=== PATIENT | female | born 1940 | race Caucasian/White ===

== ENCOUNTER 2018-05-04 12:58 | Emergency (ER) | payer OTHER ==
[2018-05-04 13:05] VITALS: BMI 24.7
--- NOTE | 2018-05-04 13:58 | PDOC ---
History of Present Illness - General Chief Complaint: Diarrhea Stated Complaint: DIARRHEA Time Seen by Provider: 05/04/18 13:39 History Source: Patient, Family (Daughter present for interview.) Exam Limitations: No Limitations - History of Present Illness Travel History: No Initial Comments: 77 y/o female presenting to [facility] ER via private auto complaining of three days of diarrhea and subjective fever this morning around 11:00. Pt reports diarrhea is an acute on chronic problem with several weeks of episodes in the recent past with associated abdominal pain. Stool is non-bloody. Denies recent antibiotic usage. Has been evaluated by PCP for symptoms; reports stool samples were negative. No abdominal pain at this time. Past History - Past Medical History Allergies/Adverse Reactions: Allergies Allergy/AdvReac Type Severity Reaction Status Date / Time No Known Allergies Allergy Verified 05/04/18 13:05 Home Medications: Ambulatory Orders Cephalexin Monohydrate [Keflex -] 500 mg PO BID 7 Days #14 capsule 05/04/18 COPD: No Diabetes: Yes (IDDM) HTN: Yes - Suicide/Smoking/Psychosocial Hx Smoking History: Never smoked Review of Systems - Review of Systems Constitutional: Yes: Fever. No: Chills, Diaphoresis HEENTM: No: Throat Pain, Difficulty Swallowing Respiratory: No: Shortness of Breath Cardiac (ROS): No: Chest Pain ABD/GI: Yes: Diarrhea, Abdominal cramping (Not present now.). No: Constipated, Nausea, Rectal Bleeding, Vomiting, Tarry Stools : No: Burning, Dysuria, Discharge, Frequency, Flank Pain, Hematuria Musculoskeletal: No: Muscle Pain Integumentary: No: Rash Hematologic/Lymphatic: No: Easy Bleeding, Easy Bruising *Physical Exam - Vital Signs Last Vital Signs Temp Pulse Resp BP Pulse Ox 98.5 F 107 H 20 125/63 99 05/04/18 13:01 05/04/18 13:01 05/04/18 13:01 05/04/18 13:01 05/04/18 13:01 - Physical Exam Comments: Constitutional: Well-developed, well-nourished female in no obvious distress. Found semi-fowlers in hospital bed. Alert and oriented x4. Answered all questions appropriately and completely. Speech was non-labored, non-pressured. Head: Normocephalic. No obvious external signs of trauma. HEENT: Normocephalic. No obvious external signs of trauma. Hearing grossly normal. No nasal discharge. Neck is supple, trachea is midline. Cardiovascular: Regular rate and regular rhythm. No murmur, rubs, clicks, or gallops. Peripheral pulses: Radial pulses full. Respiratory: Breathing unlabored. Equal chest rise and fall. Clear to auscultation bilaterally. No stridor, no wheezing, no rhonchi. Gastrointestinal: abdomen is soft, non-tender, non-distended. No hepatosplenemegaly. No pulsatile masses. No overlying skin lesions or obvious signs of trauma. Neuro: Alert and oriented. Moving all four extremities spontaneously. Skin: Warm, dry, and intact. No bruising, rashes, or other lesions. : No R or L CVA tenderness. Psych: Affect: appropriate. Mood: normal. ED Treatment Course - LABORATORY CBC & Chemistry Diagram: 05/04/18 14:42 05/04/18 14:42 - RADIOLOGY Radiograph Interpretation: CT of Abdomen and Pelvis with contrast: Dennis Blood MD wrote on May 04, 2018 at 06:00 PM: Referring Physician: BISHOP NUNO Patient Name: SHAHLA MICHELLE THIS IS A PRELIMINARY REPORT FROM [facility] DATE OF SERVICE: 2018-05-04 16:59:21 IMAGES: 501 EXAM: CT abdomen and pelvis with IV contrast. Clinical indication: Abdominal pain with diarrhea. There are no prior studies available for comparison. Technique: Axial IV contrast-enhanced CT images of the abdomen and pelvis were obtained followed by coronal and sagittal reformats. Findings: The visualized portions of the lower thorax are within normal limits. Her graph there is no free intra-abdominal gas or fluid. There is a small simple hepatic cyst within segment 2 of the liver and another tiny hepatic hypodensity within segment 4 of the liver which likely represents a tiny hepatic cyst. No definite worrisome hepatic lesions. The gallbladder, adrenals, pancreas, and spleen are normal. There are some left- sided renal hypodensities which are not completely characterized, particularly within the midportion of the left kidney where there is a 1.6 and meter nodule. Recommend targeted sonogram for further characterization. The bilateral kidneys do not demonstrate any evidence of hydronephrosis or renal calculi and are otherwise unremarkable. There is fairly extensive aortoiliac atherosclerotic vascular calcifications. There are no enlarged abdominal or pelvic lymph nodes, by size criteria. The urinary bladder is unremarkable. The pelvic organs are grossly unremarkable, given limitations of CT for evaluating them. The appendix is normal. The remainder of the bowel is unremarkable. There is an anterolisthesis of L4 on L5 of approximately 0.5 cm secondary to degenerative changes. Remainder of the visualized bony structures are unremarkable. Impression: 1. Left-sided renal hypodensities which are not completely characterized. These could represent renal cysts, but neoplasms cannot be entirely excluded. Recommend targeted renal sonogram. 2. Anterolisthesis of L4 on L5 secondary to degenerative changes. Individualized dose optimization techniques were used for this CT. THIS DOCUMENT HAS BEEN ELECTRONICALLY SIGNED Dennis Blood MD 05/04/2018 16:58 EST M.D. Please call [facility] [phone] ([phone]) with questions. Dennis Blood MD Medical Decision Making - Medical Decision Making *Reviewed nursing notes and prior visit documentation. 77 y/o female complaining of subjective fever and diarrhea in setting of recent prolonged period of frequent diarrhea. Underwent unremarkable outpatient workup. Afebrile on arrival. Vitals unremarkable for hypotension or tachycardia. Benign physical exam without abdominal or flank tenderness; no peritoneal signs. Low suspicion for colitis, enteritis, diverticulosis/ diverticulitis, cholecystitis, hepatitis, pancreatitis given HPI and physical exam. Will obtain EKG, troponin, CBC, CMP, CT of abdomen and pelvis and UA with culture given possible fever. NS IVB administered. CT of abdomen and pelvis unremarkable for acute process. UA positive for pyuria and nitrites. Will treat as presumptive UTI. Possible source of fever. Discussed imaging and laboratory results with pt. Answered all questions. Provided return precautions. Pt expressed verbal understanding and agreement with plan to discharge home with outpatient follow up. Prescribed Keflex for abx therapy. *DC/Admit/Observation/Transfer Diagnosis at time of Disposition: UTI (urinary tract infection) - Discharge Dispostion Disposition: HOME - Prescriptions Prescriptions: Cephalexin Monohydrate [Keflex -] 500 mg PO BID 7 Days #14 capsule - Referrals Referrals: Anitha Valenzuela MD [Primary Care Provider] - - Patient Instructions Printed Discharge Instructions: DI for Urinary Tract Infection (UTI) Additional Instructions: You have been diagnosed with a UTI today. I have sent one prescription to the [facility] on [address] in [place], [place]. Please take as directed. Follow up with your primary care doctor within the next week. I have attached a copy of your CT scan. Please take this report with you to the visit so that you may discuss the results. Go to the nearest ER if your symptoms worsen or you feel like you condition requires another emergency evaluation. Print Language: PERSIAN - Post Discharge Activity
[2018-05-04 15:02] LABS: URINE APPEARANCE SLCLOUDY; URINE BILIRUBIN NEGATIVE (<2.0 mg/dL); URINE COLOR YELLOW; URINE GLUCOSE (UA) NEGATIVE (NEGATIVE); URINE KETONE NEGATIVE (NEGATIVE); URINE NITRITE POSITIVE (NEGATIVE); URINE PROTEIN NEGATIVE (NEGATIVE); URINE UROBILINOGEN NEGATIVE mg/dL (0.2-1.0)
[2018-05-04 15:03] LABS: BASO % 0.4 % (0-2.0); HEMATOCRIT 38.7 % (32.4-45.2); HEMOGLOBIN 13.4 GM/dL (10.7-15.3); LYMPH % 6.1 % (8-40); MCH 30.8 pg (25.7-33.7); MCHC 34.6 g/dl (32.0-36.0); MEAN PLT VOLUME 7.5 fl (7.5-11.1); MONO % 2.8 % (3.8-10.2); NEUT % 90.7 % (42.8-82.8); PLATELET COUNT 287 K/MM3 (134-434); RBC 4.35 M/mm3 (3.60-5.2); RDW 13.3 % (11.6-15.6); WHITE BLOOD COUNT 14.2 K/mm3 (4.0-10.0)
[2018-05-04] MEDS ORDERED: SODIUM CHLORIDE 1,000 ML IV STA (15:06)
[2018-05-04 15:09] LABS: URINE LEUK ESTERASE 1+ (NEGATIVE)
[2018-05-04 15:11] LABS: EPI CELLS RARE /HPF (FEW); URINE BACTERIA FEW /hpf (NONE SEEN)
--- NOTE | 2018-05-04 15:28 | PDOC ---
Attending Attestation - Resident Resident Name: Nima Dickinson - ED Attending Attestation I have performed the following: I have examined & evaluated the patient, The case was reviewed & discussed with the resident, I agree w/resident's findings & plan, Exceptions are as noted - HPI HPI: 05/04/18 15:23 77-year-old female history of hypertension, diabetes presents with diarrhea for 3 weeks. The patient's been reporting soft loose stools and no abdominal pain. Denies any nausea or vomiting or fevers or not time. Says she saw her primary care physician obtain stool samples but was reportedly negative. However today, patient started developing tactile fevers and came to the ER. Denies abdominal pain now. Denies sick contacts, recent travels or recent antibiotics. - Physicial Exam PE: 05/04/18 15:27 GENERAL: Awake, alert, and fully oriented, in no acute distress HEAD: No signs of trauma EYES: EOMI, sclera anicteric, conjunctiva clear ENT: Auricles normal inspection, hearing grossly normal, nares patent NECK: Normal ROM, supple, ABDOMEN: Soft, nontender,No guarding, no rebound. No masses EXTREMITIES: Normal range of motion, no edema. No clubbing or cyanosis. No cords, erythema, or tenderness NEUROLOGICAL: Cranial nerves II through XII grossly intact. Normal speech, normal gait SKIN: Warm, Dry, normal turgor, no rashes or lesions noted. - Medical Decision Making 05/04/18 15:28 Vital Signs Temp Pulse Resp BP Pulse Ox 98.5 F 107 H 20 125/63 99 05/04/18 13:01 05/04/18 13:01 05/04/18 13:01 05/04/18 13:01 05/04/18 13:01 Given fever and diarrhea, we'll need to rule out colitis. Obtain blood work and CAT scan and pelvis. Patient also noted with positive nitrates and urine. We'll treat this as urinary tract infection as well. 05/04/18 17:21 CBC, BMP 05/04/18 14:42 05/04/18 14:42 CMP Sodium 135 mmol/L (136-145) L 05/04/18 14:42 Potassium 3.8 mmol/L (3.5-5.1) 05/04/18 14:42 Chloride 99 mmol/L (98-107) 05/04/18 14:42 Carbon Dioxide 26 mmol/L (21-32) 05/04/18 14:42 Anion Gap 10 MMOL/L (8-16) 05/04/18 14:42 BUN 14 mg/dL (7-18) 05/04/18 14:42 Creatinine 0.8 mg/dL (0.55-1.02) 05/04/18 14:42 Creat Clearance w eGFR > 60 (>60) 05/04/18 14:42 Random Glucose 101 mg/dL (74-106) 05/04/18 14:42 Calcium 8.4 mg/dL (8.5-10.1) L 05/04/18 14:42 Total Bilirubin 0.5 mg/dL (0.2-1.0) 05/04/18 14:42 AST 20 U/L (15-37) 05/04/18 14:42 ALT 25 U/L (12-78) 05/04/18 14:42 Alkaline Phosphatase 65 U/L (45-117) 05/04/18 14:42 Troponin I < 0.02 ng/ml (0.00-0.05) 05/04/18 14:42 Total Protein 7.1 g/dl (6.4-8.2) 05/04/18 14:42 Albumin 3.7 g/dl (3.4-5.0) 05/04/18 14:42 Urine Test Results Urine Color Yellow 05/04/18 14:45 Urine Appearance Slcloudy 05/04/18 14:45 Urine pH 6.0 (5.0-8.0) 05/04/18 14:45 Ur Specific Saline 1.009 (1.001-1.035) 05/04/18 14:45 Urine Protein Negative (NEGATIVE) 05/04/18 14:45 Urine Glucose (UA) Negative (NEGATIVE) 05/04/18 14:45 Urine Ketones Negative (NEGATIVE) 05/04/18 14:45 Urine Blood Negative (NEGATIVE) 05/04/18 14:45 Urine Nitrite Positive (NEGATIVE) 05/04/18 14:45 Urine Bilirubin Negative (<2.0 mg/dL) 05/04/18 14:45 Ur Leukocyte Esterase 1+ (NEGATIVE) H 05/04/18 14:45 Ur Epithelial Cells Rare /HPF (FEW) 05/04/18 14:45 Urine Bacteria Few /hpf (NONE SEEN) 05/04/18 14:45 WBC 14 with positive nitrates and leuk. Will treat as UTI. CT abdomen and pelvis pending. 05/04/18 18:02 CT scan of abdomen and pelvis shows no acute findings. Does show some left kidney hypodensities, cannot exclude malignancies. Will inform patient and have her follow up as an outpatient.
[2018-05-04 15:37] LABS: ALBUMIN 3.7 g/dl (3.4-5.0); ANION GAP 10 MMOL/L (8-16); BILIRUBIN,TOTAL 0.5 mg/dL (0.2-1.0); BLOOD UREA NITROGEN 14 mg/dL (7-18); CALCIUM 8.4 mg/dL (8.5-10.1); CHLORIDE 99 mmol/L (98-107); CO2 26 mmol/L (21-32); CREATININE 0.8 mg/dL (0.55-1.02); GLUCOSE,RANDOM 101 mg/dL (74-106); POTASSIUM 3.8 mmol/L (3.5-5.1); SGOT/AST 20 U/L (15-37); SGPT/ALT 25 U/L (12-78); SODIUM 135 mmol/L (136-145); TOT PROT 7.1 g/dl (6.4-8.2)
[2018-05-04 15:39] LABS: ALK PHOS 65 U/L (45-117)
[2018-05-04 17:41] VITALS: BP 120/68; PULSE 86; TEMP 97.9
--- NOTE | 2018-05-05 13:23 | EKG ---
Test Reason : Blood Pressure : / mmHG Vent. Rate : 093 BPM Atrial Rate : 093 BPM P-R Int : 186 ms QRS Dur : 084 ms QT Int : 382 ms P-R-T Axes : 036 010 048 degrees QTc Int : 474 ms NORMAL SINUS RHYTHM WITH SINUS ARRHYTHMIA NORMAL ECG NO PREVIOUS ECGS AVAILABLE Confirmed by BRUCE ARMENTA MD ([id number]) on 05/05/2018 1:23:26 PM Referred By: Confirmed By:BRUCE ARMENTA MD
== END 2018-05-04 18:34 | disposition home or self-care (01) ==
LOC: JER 12:58
PROC: 3E0337Z Introduction of Electrolytic and Water Balance Substance into Peripheral Vein, Percutaneous Approach (ICD-10-PCS; principal; 2018-05-04)
DX: N39.0 Urinary tract infection, site not specified (principal); I10 Essential (primary) hypertension; E11.9 Type 2 diabetes mellitus without complications; Z79.4 Long term (current) use of insulin
CPT/HCPCS: 36415; 74177-TC; 80053; 81003; 81015; 84484; 85025; 87086; 87186; 93005; 93010; 96360; 99283-25; J7030